=== PATIENT | female | born 1980 | race Caucasian/White ===

== ENCOUNTER → 2017-08-08 07:43 | Outpatient (CLI) | payer BC, SELFPAY ==
[2017-08-08 09:20] LABS: Hemoglobin A1C 10.9 % (0.0-7.0)
[2017-08-08 09:49] LABS: Alanine Aminotransferase 79 U/L (12-78); Albumin Level 3.5 gm/dL (3.4-5.0); Alkaline Phosphatase 111 U/L (46-116); Anion Gap 14.9 mEq/L (5-15); Aspartate Amino Transferase 52 U/L (15-37); Bilirubin,Total 0.8 mg/dL (0.2-1.0); Blood Urea Nitrogen 4 mg/dL (7-18); Calcium 8.8 mg/dL (8.5-10.1); Carbon Dioxide 28 mmol/L (21.0-32.0); Chloride 99 mmol/L (98-107); Chol/HDL Ratio 8.5 (1-3.5); Cholesterol 255 mg/dL (140-200); Creatinine,Serum 0.75 mg/dL (0.55-1.02); Estimated Glomerular Filt Rate 87 ml/min (>60); GFR (African American) 106 ML/MIN (>60); Globulin 3.4 gm/dl (1.3-3.2); Glucose 346 mg/dL (74-106); HDL Cholesterol 30 mg/dL (29-89); Potassium 3.9 mmoL/L (3.5-5.1); Sodium 138 mmol/L (136-145); Total Protein,Serum 6.9 gm/dL (6.4-8.2)
[2017-08-08 09:52] LABS: Triglycerides 470 mg/dL (30-200)
== END ==
PROVIDERS: PCP Nurse Practitioner Family; Visit Provider Nurse Practitioner Family
DX: R73.9 Hyperglycemia, unspecified (principal); R63.1 Polydipsia; R35.8 Other polyuria; B37.3 Candidiasis of vulva and vagina; Z00.00 Encounter for general adult medical examination without abnormal findings
CPT/HCPCS: 36415; 80053; 80061; 83036